=== PATIENT | male | born 1950 | race Caucasian/White ===

== ENCOUNTER 2020-03-14 00:18 | Outpatient (CLI) | payer MEDICARE, SELFPAY ==
[2020-03-14 20:45] LABS: SARS-CoV-2 RNA PCR Negative
== END 2020-03-14 00:19 | disposition home or self-care (01) ==
LOC: ANHCOVIDDT 00:18
PROVIDERS: PCP Internal Medicine; Visit Provider Surgery
DX: Z01.818 Encounter for other preprocedural examination (principal); Z20.828 Contact with and (suspected) exposure to other viral communicable diseases
CPT/HCPCS: 87635; C9803; U0003

== ENCOUNTER 2020-03-15 09:53 | Outpatient (CLI) | payer MEDICARE, SELFPAY ==
--- NOTE | 2020-03-15 09:54 | ECG_ITS ---
Measurements Intervals [place] Rate: 74 P: 57 DE: 181 QRS: -34 QRSD: 98 T: 38 QT: 367 QTc: 408 Interpretive Statements SINUS RHYTHM WITH SINUS ARRHYTHMIA LEFT AXIS DEVIATION BASELINE ARTIFACT- I, II, III, AVR, AVL, AVF BORDERLINE ECG Electronically Signed On 03-15-2020 10:31:45 FIELD AIDE by Dada Anderson D.O.
[2020-03-15 10:23] LABS: Anion Gap 6 mmol/L (8-16); Blood Urea Nitrogen 16 mg/dL (9-20); Carbon Dioxide 29 mmol/L (22-30); Chloride 107 mmol/L (98-107); Estimated Glomerular Filt Rate > 60; Glucose 233 mg/dL (75-110); Potassium 4.7 mmol/L (3.4-5.0); Sodium 142 mmol/L (137-145)
== END 2020-03-15 09:54 | disposition home or self-care (01) ==
LOC: ANHSURGERY 09:54
PROVIDERS: Anesthesiology; PCP Internal Medicine; Visit Provider Surgery
DX: E11.9 Type 2 diabetes mellitus without complications (principal); Z01.818 Encounter for other preprocedural examination; I10 Essential (primary) hypertension; R94.31 Abnormal electrocardiogram [ECG] [EKG]
CPT/HCPCS: 36415; 80048; 93005

== ENCOUNTER 2020-03-17 02:05 | Day surgery (SDC) | payer MEDICARE, SELFPAY ==
[2020-03-14 09:46] VITALS: BMI 27.1
[2020-03-17] VITALS (8 sets, daily range): BP systolic 103–125; BP diastolic 61–78; PULSE 49–73; RESP 12–20; TEMP 36.6; O2SAT 96–99
--- NOTE | 2020-03-17 07:16 | WPDHPUPDATE1 ---
History and Physical Update Update Date/Time: 03/17/20 07:16 History and Physical has been reviewed, including an updated exam of the patient. There are NO changes in the patient's condition. Risks, benefits, and alternatives have been discussed and questions answered. Patient agrees to proceed with procedure.
--- NOTE | 2020-03-17 10:31 | WPDANESEPPF ---
Anes - Initial Pre Proc Eval Procedure: Operation Date: 03/17/20 12:00 Proposed Procedures p Right Inguinal Hernia Repair - Prosper Bear MD Date/Time: 03/17/20 10:31 Surgeon: Prosper Bear MD Pre Op Diagnosis: Right Inguinal Hernia Patient Data Age: 69 Gender: M Height: 6 ft Weight: 90.72 kg Allergies Allergy/AdvReac Type Severity Reaction Status Date / Time No Known Allergies Allergy Unverified 03/14/20 09:29 Home Medications Medication Instructions Recorded Confirmed Type amlodipine 5 mg tablet 5 mg PO DAILY 02/29/20 03/14/20 History aspirin 81 mg chewable tablet 81 mg PO DAILY 02/29/20 03/14/20 History fenofibrate 160 mg tablet 134 mg PO DAILY tablet 02/29/20 03/14/20 History lisinopril 10 mg tablet 10 mg PO DAILY 02/29/20 03/14/20 History metformin 500 mg tablet 1,000 mg PO QAM 02/29/20 03/14/20 History multivitamin [Men's Multi-Vitamin] 1 tablet PO DAILY 03/14/20 03/14/20 History Patient hx anesthesia problems: none Family hx anesthesia problems: none PMFSH Past Medical History Medical History Diabetes High cholesterol HTN (hypertension) Surgical History Surgical History History of back surgery Hx of tonsillectomy Family History Family History Father Cancer Mother Cancer Grandparent Cancer Other Cancer Social History Social History Smoking packs per day: 0.5 Smoking cigarettes per day: 10.0 Years smoked: 10 Smoking pack-years: 5.00 Smoking status: Former smoker Tobacco type: cigarettes Smoking end date: 04/15/78 Alcohol intake: current Substance use: unknown Living arrangements: with family Gender identity (if verbalized by the patient): Male Spiritual care concerns: No Anes - Eval Final PreProcedure Day of Procedure 03/17/20 10:31 Patient weight: overweight Heart: regular rate and rhythm Lungs: clear to auscultation Airway: Mallampati scale class II Neurological: alert and oriented Last oral intake: >/= 8 hours ASA classification: III Emergent: no Anesthetic plan: proceed Anesthesia type and monitoring: general GIVS and standard monitoring Informed Consent: The patient's anesthetic plan and its attendant risks and benefits were discussed with the patient/family/POA. Questions were solicited and answers provided to the satisfaction of the patient/family/POA.
[2020-03-17] MEDS: ACETAMINOPHEN 500 MG TABLET 1000 MG PO (10:52)
[2020-03-17] MEDS: LACTATED RINGERS 1,000 ML 30 ML IV CONT ×3 (10:55→13:51)
[2020-03-17] MEDS: KETOROLAC 15 MG/ML VIAL (*BKC) IV PUSH (11:03)
[2020-03-17 11:13] LABS: Glucose Point of Care 141 (65-105)
[2020-03-17] MEDS: ceFAZolin 2 GM/D5W 50 ML 2 GM/50 ML BAG IVPB (11:17)
--- NOTE | 2020-03-17 12:43 | P.OP_ITS ---
Procedure Note - Detailed Date of procedure: 03/17/20 Pre-op diagnosis: Right Inguinal Hernia Right inguinal hernia Post-op diagnosis: other (Indirect hernia) Procedure performed: Repair of right inguinal hernia with 6 cm Parietex hernia mesh system Description of procedure: The patient was taken to surgery and IV sedation was administered. The right groin and genitalia were prepped and draped. Proposed incision was marked on the skin. Local was infiltrated into the skin and the deeper subcutaneous tissues. Incision was made and deepened through the subcutaneous. Crossing veins were cauterized and divided. Dissection was carried through Isi's fascia down to the external oblique aponeurosis. The aponeurosis was exposed as was the external ring. Additional local anesthesia was infiltrated deep to the aponeurosis in the area of the spermatic cord and inguinal canal contents. The aponeurosis was opened laterally and extended medially through the external ring. The leaves of the aponeurosis were dis sected free from the spermatic cord. The ileoinguinal nerve was carefully preserved throughout the dissection and was left attached to the spermatic cord. The cord was then mobilized medially on a Saray drain. The cord was dissected back to the internal ring. Dissection was then carried out in the anteromedial spermatic cord. The hernia sac was found and dissected free. The sac was opened so that I could place a finger within the hernia sac and facilitate this dissection. This opening was then closed with a running 3 0 Vicryl suture. The sac was then dissected back to a high dissection. It was dunked into the retroperitoneum. A 6 centimeter Parietex salamatof was chosen. It was folded to form a plug. It was placed in the defect. The edges were sutured to the transversalis fascia with interrupted 3 0 Vicryl suture. The hernia defect was then partially closed with some additional 3 0 Vicryl suture. Patch was then cut to the appropriate size and placed over the inguinal canal floor. The lateral leaves were passed beyond the cord. The cord and ileoinguinal nerve were then laid over the patch. The external oblique aponeurosis was closed with interrupted 3 0 Vicryl suture. Isi's fascia was closed with interrupted 3 0 Vicryl suture. The subcutaneous was closed with interrupted 4 0 Vicryl suture. Four 0 Vicryl subcuticular skin sutures were placed. The skin was closed finally with a running 4 0 Monocryl skin suture. The wound was dressed with Exofin surgical adhesive. The patient was awakened and taken to recovery in good condition. Sponge and needle counts were correct x2. Anesthesia: MAC and local (0.5% Marcaine with Exparel) Surgeon: Prosper Bear MD Manager Quality Improvement: Frederic GARZA Estimated blood loss (mL): 5 Drains: No Packing: No Pathology: none sent Complications: None Condition: stable Disposition: PACU Findings: Indirect inguinal hernia. No sliding hernia was noted.
== END 2020-03-17 15:32 | disposition home or self-care (01) ==
PROVIDERS: PCP Internal Medicine; Visit Provider Surgery
PROC: (CPT 49505; principal; 2020-03-17 12:00)
DX: K40.90 Unilateral inguinal hernia, without obstruction or gangrene, not specified as recurrent (principal); I10 Essential (primary) hypertension; E78.00 Pure hypercholesterolemia, unspecified; E11.9 Type 2 diabetes mellitus without complications; Z79.82 Long term (current) use of aspirin; Z79.84 Long term (current) use of oral hypoglycemic drugs; Z87.891 Personal history of nicotine dependence
CPT/HCPCS: 49505; A9270; C1781; C9290; J0690; J1885; J2704; J3010; J7120